=== PATIENT | female | born 1990 | race Caucasian/White ===

== ENCOUNTER 2018-03-29 11:07 | Inpatient (IN) | payer BC ==
[2018-03-29] MEDS ORDERED: BUTORPHANOL 2 MG INJ IV (12:00)
[2018-03-29] MEDS ORDERED: AMPICILLIN 2 GM/NS (PMX) 100 ML IV (12:00)
[2018-03-29] MEDS ORDERED: OXYTOCIN 30 UNITS/LR 500 ML IV ×3 (12:00)
[2018-03-29] MEDS ORDERED: METHYLERGONOVINE 0.2 MG INJ IM (12:00)
[2018-03-29] MEDS ORDERED: IBUPROFEN 600 MG TAB PO (12:00)
[2018-03-29] MEDS ORDERED: CARBOPROST 250 MCG INJ IM (12:00)
[2018-03-29] MEDS ORDERED: MISOPROSTOL 200 MCG TAB PR (12:00)
[2018-03-29] MEDS ORDERED: LIDOCAINE 1% (MPF) 30 ML INJ INJ (12:00)
[2018-03-29 12:52] LABS: ADD MAN DIFF? NO
[2018-03-29 13:10] LABS: WHITE BLOOD COUNT 11.4 10^3/ul (4.8-10.8)
[2018-03-29 13:10] LABS: BASOPHILS % 0.4 % (0.0-2.0); EOSINOPHILS # 0.1 10^3/ul (0.0-0.5); EOSINOPHILS % 0.9 % (0.0-7.0); HEMATOCRIT 41.5 % (37.0-47.0); HEMOGLOBIN 14.2 g/dl (12.0-16.0); LYMPHOCYTES # 2.2 10^3/ul (0.8-2.9); LYMPHOCYTES % 19.6 % (15.0-51.0); MEAN CORPUSCULAR HEMOGLOBIN 30.7 pg (29.0-33.0); MEAN CORPUSCULAR HGB CONC 34.2 g/dl (32.0-37.0); MEAN CORPUSCULAR VOLUME 89.8 fl (82.0-101.0); MEAN PLATELET VOLUME 10.3 fl (7.4-10.4); MONOCYTE # 0.7 10^3/ul (0.3-0.9); MONOCYTES % 6.4 % (0.0-11.0); NEUTROPHIL # 8.2 10^3/ul (1.6-7.5); NEUTROPHILS % 72.1 % (39.0-77.0); PLATELET COUNT 197 10^3/UL (140-415); RED BLOOD COUNT 4.62 10^6/ul (4.20-5.40); RED CELL DISTRIBUTION WIDTH 13.9 % (11.5-14.5)
[2018-03-29 13:17] LABS: INR 0.83; PROTIME 11.5 Sec (11.9-14.9); PT RATIO 0.9
[2018-03-29 13:18] LABS: PARTIAL THROMBOPLASTIN TIME 24.6 Sec (23.0-35.0)
[2018-03-29 13:45] LABS: HEPATITIS B SURFACE ANTIGEN NEGATIVE (NEGATIVE)
[2018-03-29 15:21] LABS: RAPID PLASMA REAGIN NONREACTIVE (NR)
[2018-03-29] MEDS ORDERED: AMPICILLIN 1 GM/NS (PMX) 50 ML IV (16:00)
[2018-03-29] MEDS: MISOPROSTOL 50 MCG CAPSULE PO ×2 (17:05→21:06)
[2018-03-29] MEDS: LACTATED RINGER'S 1,000 ML IV ×2 (19:10→20:52)
[2018-03-30] MEDS: MISOPROSTOL 50 MCG CAPSULE PO ×3 (01:55→10:14)
[2018-03-30] MEDS: LACTATED RINGER'S 1,000 ML IV ×3 (04:40→23:55)
[2018-03-30] MEDS ORDERED: CEFAZOLIN 1 GM INJ ×2 (07:00→18:07)
[2018-03-30] MEDS ORDERED: METOCLOPRAMIDE 10 MG INJ (07:00)
[2018-03-30] MEDS: NA PHOSPHATE/BIPHOS 133 ML ENEMA PR (14:59)
[2018-03-30] MEDS ORDERED: CEFAZOLIN 1 GM/50 ML (PMX) 50 ML IVPB (15:19)
[2018-03-30] MEDS ORDERED: HYDROCODONE/APAP (5/325) TAB PO (15:30)
[2018-03-30] MEDS ORDERED: METHYLERGONOVINE 0.2 MG TAB PO (15:30)
[2018-03-30] MEDS ORDERED: CARBOPROST 250 MCG INJ IM (15:30)
[2018-03-30] MEDS ORDERED: OXYTOCIN 30 UNITS/LR 500 ML IV (15:30)
[2018-03-30] MEDS ORDERED: CEFAZOLIN 2 GM/50 ML (PMX) 50 ML IVPB (15:30)
[2018-03-30] MEDS ORDERED: METHYLERGONOVINE 0.2 MG INJ IM (15:30)
[2018-03-30] MEDS ORDERED: MISOPROSTOL 200 MCG TAB PR (15:30)
[2018-03-30] MEDS ORDERED: morphine SULFATE/PF (10 MG/10 ML) INJ (17:59)
[2018-03-30] MEDS ORDERED: BUPIVACAINE 0.75%/DEXT (SPINAL) 2 ML INJ (17:59)
[2018-03-30] MEDS ORDERED: OXYTOCIN 10 UNIT INJ ×2 (18:28→19:11)
[2018-03-30] MEDS ORDERED: HYDROmorphONE 0.5 MG/0.5 ML SYG IV (18:30)
[2018-03-30] MEDS ORDERED: ZOLPIDEM 5 MG TAB PO (18:30)
[2018-03-30] MEDS ORDERED: DIPHENHYDRAMINE 50 MG INJ IV ×2 (18:30)
[2018-03-30] MEDS ORDERED: NALOXONE (0.4 MG/ML) INJ IV (18:30)
[2018-03-30] MEDS ORDERED: ONDANSETRON 4 MG INJ IV (18:30)
[2018-03-30] MEDS ORDERED: NALBUPHINE HCL (10 MG/1 ML) INJ IV (18:30)
[2018-03-30] MEDS ORDERED: MEPERIDINE 25 MG INJ IV (18:30)
[2018-03-30] MEDS ORDERED: MIDAZOLAM 1 MG/ML 2 ML INJ IV (18:30)
[2018-03-30] MEDS ORDERED: MIDAZOLAM 1 MG/ML 2 ML INJ (18:32)
[2018-03-30] MEDS ORDERED: ONDANSETRON 4 MG INJ (18:33)
[2018-03-30] MEDS: CEFAZOLIN 2 GM/50 ML (PMX) 50 ML IVPB (19:00)
[2018-03-30] MEDS: OXYTOCIN 30 UNITS/LR 500 ML IV (21:26)
[2018-03-30] MEDS: ONDANSETRON 4 MG INJ IV (23:56)
[2018-03-30] MEDS: IBUPROFEN 800 MG TAB PO (23:58)
[2018-03-30] MEDS: SENNA/DOCUSATE NA (8.6MG/50MG) TAB PO (23:58)
[2018-03-31] MEDS: OXYTOCIN 30 UNITS/LR 500 ML IV (00:43)
[2018-03-31] MEDS: KETOROLAC 30 MG INJ IV ×2 (00:58→10:35)
[2018-03-31] MEDS: HYDROmorphONE 0.5 MG/0.5 ML SYG IV (01:37)
[2018-03-31] MEDS: CEFAZOLIN 2 GM/50 ML (PMX) 50 ML IVPB ×2 (02:20→10:33)
[2018-03-31] MEDS: IBUPROFEN 800 MG TAB PO ×3 (06:00→22:22)
[2018-03-31 08:24] LABS: ADD MAN DIFF? NO
[2018-03-31 08:29] LABS: BASOPHIL # 0.1 10^3/ul (0.0-0.1); BASOPHILS % 0.4 % (0.0-2.0); EOSINOPHILS % 0.2 % (0.0-7.0); HEMATOCRIT 35.4 % (37.0-47.0); HEMOGLOBIN 11.9 g/dl (12.0-16.0); LYMPHOCYTES # 1.7 10^3/ul (0.8-2.9); LYMPHOCYTES % 11.8 % (15.0-51.0); MEAN CORPUSCULAR HEMOGLOBIN 30.8 pg (29.0-33.0); MEAN CORPUSCULAR HGB CONC 33.6 g/dl (32.0-37.0); MEAN CORPUSCULAR VOLUME 91.7 fl (82.0-101.0); MEAN PLATELET VOLUME 10.1 fl (7.4-10.4); MONOCYTE # 0.9 10^3/ul (0.3-0.9); MONOCYTES % 6.1 % (0.0-11.0); NEUTROPHIL # 11.5 10^3/ul (1.6-7.5); PLATELET COUNT 155 10^3/UL (140-415); RED BLOOD COUNT 3.86 10^6/ul (4.20-5.40); RED CELL DISTRIBUTION WIDTH 14.2 % (11.5-14.5)
[2018-03-31 08:29] LABS: WHITE BLOOD COUNT 14.2 10^3/ul (4.8-10.8)
[2018-03-31] MEDS: LACTATED RINGER'S 1,000 ML IV (10:33)
[2018-03-31] MEDS: SENNA/DOCUSATE NA (8.6MG/50MG) TAB PO ×2 (10:33→21:00)
[2018-03-31] MEDS: HYDROCODONE/APAP (5/325) TAB PO (21:01)
[2018-04-01] MEDS: HYDROCODONE/APAP (5/325) TAB PO ×4 (03:12→19:44)
[2018-04-01 03:15] LABS: RHOGAM PROFILE 1 1
[2018-04-01] MEDS: IBUPROFEN 800 MG TAB PO ×3 (06:16→23:02)
[2018-04-01 08:37] LABS: ADD MAN DIFF? NO
[2018-04-01 08:56] LABS: BASOPHIL # 0.1 10^3/ul (0.0-0.1); BASOPHILS % 0.4 % (0.0-2.0); EOSINOPHILS # 0.2 10^3/ul (0.0-0.5); EOSINOPHILS % 1.2 % (0.0-7.0); HEMATOCRIT 35.3 % (37.0-47.0); HEMOGLOBIN 11.7 g/dl (12.0-16.0); LYMPHOCYTES # 2.6 10^3/ul (0.8-2.9); LYMPHOCYTES % 18.6 % (15.0-51.0); MEAN CORPUSCULAR HEMOGLOBIN 30.9 pg (29.0-33.0); MEAN CORPUSCULAR HGB CONC 33.1 g/dl (32.0-37.0); MEAN CORPUSCULAR VOLUME 93.1 fl (82.0-101.0); MEAN PLATELET VOLUME 10.2 fl (7.4-10.4); MONOCYTE # 0.8 10^3/ul (0.3-0.9); MONOCYTES % 5.9 % (0.0-11.0); NEUTROPHIL # 10.1 10^3/ul (1.6-7.5); NEUTROPHILS % 73.5 % (39.0-77.0); PLATELET COUNT 184 10^3/UL (140-415); RED BLOOD COUNT 3.79 10^6/ul (4.20-5.40); RED CELL DISTRIBUTION WIDTH 14.3 % (11.5-14.5)
[2018-04-01 08:56] LABS: WHITE BLOOD COUNT 13.8 10^3/ul (4.8-10.8)
[2018-04-01] MEDS: SENNA/DOCUSATE NA (8.6MG/50MG) TAB PO ×2 (09:16→21:13)
[2018-04-01] MEDS: LANOLIN 7 GM TUBE TOP (21:13)
[2018-04-01] MEDS: NA PHOSPHATE/BIPHOS 133 ML ENEMA PR (21:13)
[2018-04-01] MEDS: DIPHENHYDRAMINE 50 MG CAP PO (23:02)
[2018-04-02] MEDS: IBUPROFEN 800 MG TAB PO (05:49)
[2018-04-02] MEDS: SENNA/DOCUSATE NA (8.6MG/50MG) TAB PO (08:38)
[2018-04-02] MEDS: MEASLES,MUMPS,RUBELLA VACCINE INJ SC* (09:00)
[2018-04-02] MEDS: HYDROCODONE/APAP (5/325) TAB PO (10:45)
[2018-04-02] MEDS: DIPHTH/TET/ACEL PERTUSS (ADULT) 0.5 ML VIAL IM* (11:31)
== END 2018-04-02 15:05 | disposition home or self-care (01) | DRG 788 ==
LOC: L-D 11:07 → PP1 03-30 22:17
PROVIDERS: Obstetrics & Gynecology
PROC: 10D00Z1 Extraction of Products of Conception, Low, Open Approach (ICD-10-PCS; principal; 2018-03-30 18:30)
DX: O48.0 Post-term pregnancy (principal); Z3A.40 40 weeks gestation of pregnancy; O36.63X0 Maternal care for excessive fetal growth, third trimester, not applicable or unspecified; O33.9 Maternal care for disproportion, unspecified; Z37.0 Single live birth
CPT/HCPCS: 76815; 85025; 85610; 85730; 86592; 86850; 86870; 86885; 86900; 86901; 87340; 90686; 90715; 99464

== ENCOUNTER 2018-04-16 14:57 | Emergency (ER) | payer BC ==
[2018-04-16 16:33] LABS: ADD MAN DIFF? NO
[2018-04-16 16:37] LABS: WHITE BLOOD COUNT 8.7 10^3/ul (4.8-10.8)
[2018-04-16 16:37] LABS: BASOPHIL # 0.1 10^3/ul (0.0-0.1); BASOPHILS % 0.8 % (0.0-2.0); EOSINOPHILS # 0.2 10^3/ul (0.0-0.5); EOSINOPHILS % 1.9 % (0.0-7.0); HEMATOCRIT 46.5 % (37.0-47.0); HEMOGLOBIN 15.6 g/dl (12.0-16.0); LYMPHOCYTES # 2.8 10^3/ul (0.8-2.9); LYMPHOCYTES % 31.5 % (15.0-51.0); MEAN CORPUSCULAR HEMOGLOBIN 30.8 pg (29.0-33.0); MEAN CORPUSCULAR HGB CONC 33.5 g/dl (32.0-37.0); MEAN CORPUSCULAR VOLUME 91.7 fl (82.0-101.0); MEAN PLATELET VOLUME 9.1 fl (7.4-10.4); MONOCYTE # 0.5 10^3/ul (0.3-0.9); MONOCYTES % 6.1 % (0.0-11.0); NEUTROPHIL # 5.2 10^3/ul (1.6-7.5); NEUTROPHILS % 59.4 % (39.0-77.0); PLATELET COUNT 325 10^3/UL (140-415); RED BLOOD COUNT 5.07 10^6/ul (4.20-5.40); RED CELL DISTRIBUTION WIDTH 12.9 % (11.5-14.5)
[2018-04-16 16:48] LABS: ADD UMIC YES; UR ASCORBIC ACID NEGATIVE (NEGATIVE); UR BACTERIA FEW /HPF (NONE SEEN); UR BILIRUBIN (Dip) NEGATIVE (NEGATIVE); UR BLOOD (Dip) NEGATIVE (NEGATIVE); UR CLARITY SLIGHTLY CLOUDY (CLEAR); UR COLOR YELLOW (YELLOW); UR GLUCOSE (Dip) NEGATIVE (NEGATIVE); UR KETONES (Dip) NEGATIVE (NEGATIVE); UR LEUKOCYTE ESTERASE (Dip) TRACE Leu/ul (NEGATIVE); UR MUCUS MANY /HPF (NONE SEEN); UR NITRITE (Dip) NEGATIVE (NEGATIVE); UR RBC 3 /HPF (0-5); UR SPECIFIC GRAVITY (Dip) 1.017 (1.003-1.030); UR TOTAL PROTEIN (Dip) NEGATIVE (NEGATIVE); UR UROBILINOGEN (Dip) NEGATIVE (NEGATIVE); UR WBC 11 /HPF (0-5)
[2018-04-16 17:12] LABS: ALANINE AMINOTRANSFERASE 38 IU/L (13-69); ALBUMIN 4.9 g/dl (3.3-4.9); ALBUMIN/GLOBULIN RATIO 1.58; ALKALINE PHOSPHATASE 117 IU/L (42-121); ANION GAP 11 (5-13); ASPARTATE AMINO TRANSFERASE 40 IU/L (15-46); BILIRUBIN,INDIRECT 0.3 mg/dl (0-1.1); BILIRUBIN,TOTAL 0.3 mg/dl (0.2-1.3); BLOOD UREA NITROGEN 16 mg/dl (7-20); CARBON DIOXIDE 28 mmol/L (21-31); CHLORIDE 101 mmol/L (97-110); CREATININE 0.84 mg/dl (0.44-1.00); Estimated GFR > 60 mL/min (>60); GLUCOSE 94 mg/dl (70-220); LIPASE 92 U/L (23-300); POTASSIUM 4.1 mmol/L (3.5-5.1); SODIUM 140 mmol/L (135-144)
== END 2018-04-16 17:33 | disposition home or self-care (01) ==
LOC: FTE 14:57
DX: O87.2 Hemorrhoids in the puerperium (principal); R40.2412 Glasgow coma scale score 13-15, at arrival to emergency department
CPT/HCPCS: 36415; 80053; 81001; 81025; 83690; 85025; 99284